=== PATIENT | female | born 1990 | race Caucasian/White ===

== ENCOUNTER → 2023-06-19 | Outpatient (CLI) | payer OTHER ==
[2023-06-20 06:07] LABS: RUBELLA AB IGG-REFLAB 1.26 index (Immune >0.99)
[2023-06-20 07:07] LABS: MUMPS VIRUS IGG ANTIBODY 51.5 AU/mL (Immune >10.9)
== END | disposition home or self-care (01) ==
LOC: LABMN 16:23
PROVIDERS: ATTEND Internal Medicine
DX: Z02.1 Encounter for pre-employment examination (principal)
CPT/HCPCS: 86706; 86735; 86762; 86765; 86787

== ENCOUNTER → 2023-06-28 | Outpatient (CLI) | payer OTHER | END | disposition home or self-care (01) | LOC: RADPV 08:46 | PROVIDERS: ATTEND Internal Medicine | DX: R76.11 Nonspecific reaction to tuberculin skin test without active tuberculosis (principal) | CPT/HCPCS: 71045 ==